=== PATIENT | male | born 1990 | race Caucasian/White ===

== ENCOUNTER 2022-06-03 00:46 | Emergency (ER) | payer MEDICAID ==
[~2022-06-03] VITALS: Ht 180.3 cm; Wt 59.1 kg
[2022-06-03 00:49] VITALS: BP 168/92
== END 2022-06-03 02:45 ==
LOC: ER 00:47
DX: M25.571 Pain in right ankle and joints of right foot (principal); Z72.89 Other problems related to lifestyle; V87.7XXA Person injured in collision between other specified motor vehicles (traffic), initial encounter; Y93.89 Activity, other specified; Y92.488 Other paved roadways as the place of occurrence of the external cause; Y99.8 Other external cause status
CPT/HCPCS: 73600; 99283